=== PATIENT | female | born 1965 | race Two or more races ===

== ENCOUNTER → 2016-11-29 | Outpatient (CLI) | payer BC ==
[~2016-11-29] MED LIST: ADVIL200 M1 PO; ALBUTEROL17 G1 IH; ALBUTEROL17 GM INH; AMITRIPTYLINE H25 MG PO; ATENOLOL25 MG PO; ATORVASTATIN CA20 MG PO; AUGMENTIN PO; AUGMENTIN875 MG DOB; AUGMENTIN875 MG PO; BENADRYL25 M1 PO; BENADRYL25 MG PO; BENZONATATE PO; CLINDAMYCIN HC300 MG PO; COMBIVENT RESPIM4 GM INH; CYANOCOBAL1000 MCG/M INJ; CYMBALTA30 MG PO; DULOXETINE HCL60 M1; DULOXETINE HCL60 MG PO; FLEXERIL PO; FLEXERIL10 MG PO; FLONASE 0.05% N16 G1; FUROSEMIDE40 MG PO; HUMIBID-LA600 MG PO; HYDROCODON-ACE1 EAC5 PO; IBUPROFEN400 MG PO; IBUPROFEN600 MG PO; K-DUR20 ME1 PO; KCL PO; KLOR-CON PO; LASIX PO; LEVAQUIN PO; LEVOTHYROXINE25 MC1 PO; LISINOPRIL-HCTZ1 T15 PO; METFORMIN HCL1000 M1 PO; MOBIC PO; NEXIUM PO; NORCO 10-325 TA1 TAB PO; NORCO1 TAB 10/3 PO; OMEPRAZOLE40 MG PO; OMNICEF300 MG PO; OXYCODONE-ACET1 EACH PO; OXYGEN; PERCOCET 10/3251 TAB PO; PREDNISONE PO; PREVACID15 MG PO; PROAIR HFA8.5 GM IH; PROAIR HFA8.5 GM IN; PROAIR HFA8.5 GM INH; PROTONIX PO; SYMBICORT80 INH; TENORMIN25 MG PO; TESSALON PERLE100 M1 PO; TYLENOL #3 PO; TYLENOL325 M1 PO; VITAL-D RX TABL1 TAB PO; VITAMIN B 12; VITAMIN B12 IM; VITAMIN D-32000 UNI1 PO; VITAMIN D2000 UNIT PO; VITAMIN D32000 UNI1 PO; VITAMIN D33000 UNIT PO; VITAMIN D35000 UNIT PO; VITAMIN D400 UNI2 PO; VITAMIN D50000 UNIT PO; ZESTRIL2.5 M1 PO; ZITHROMAX500 MG PO
--- NOTE | ~2016-11-29 | EKG ---
PATIENT: CATHY LLOYD UNIT #: [id number] Ventricular Rate: 80 BPM Atrial Rate: 80 BPM P-R Interval: 156 ms QRS Duration: 88 ms Q-T Interval: 374 ms QTC Calculation(Bezet): 431 ms P [place]: 71 degrees Calculated R [place]: 49 degrees Calculated T [place]: 61 degrees Diagnosis Line: Normal sinus rhythm Diagnosis Line: Normal ECG Diagnosis Line: When compared with ECG of 15-JAN-2016 21:55, Diagnosis Line: No significant change was found Diagnosis Line: Confirmed by IZABELLA SAN MD ([id number]) on 11/30/2016 Diagnosis Line: 9:59:51 AM INTERPRETING MD: MENA SPENCER
[2016-11-29 10:05] LABS: HEMATOCRIT 39.9 % (35.0-45.0); HEMOGLOBIN 12.5 gm/dL (12.0-16.0); MEAN CELL VOLUME 80.6 FL (83-96); MEAN CORPUSCULAR HEMOGLOBIN 25.2 PG (28-34); MEAN CORPUSCULAR HGB CONC 31.2 g/dL (30-36); MEAN PLATELET VOLUME 7.8 FL (6.5-11.5); RED BLOOD COUNT 4.95 X10e (3.90-5.30); RED CELL DISTRIBUTION WIDTH 17.2 % (11.0-15.5)
[2016-11-29 11:11] LABS: CALCIUM SERUM 8.8 mg/dL (8.4-10.2); CREATININE SERUM 0.5 mg/dL (0.6-1.4); GLOM FILT RATE Estimated 110.5 mL/min (>60); POTASSIUM 4.5 mmol/L (3.5-5.1)
== END | disposition home or self-care (01) ==
LOC: CAMB 08:46
PROVIDERS: Specialist
DX: Z01.818 Encounter for other preprocedural examination (principal); L73.2 Hidradenitis suppurativa
CPT/HCPCS: 36415; 80048; 85027; 93005

== ENCOUNTER → 2016-12-06 | Day surgery (SDC) | payer BC ==
--- NOTE | ~2016-12-06 | OR ---
Unit #: [id number] #: [id number] Patient: CATHY LLOYD [id number] [address] [id number] MR#: [id number] NAME: CATHY LLOYD ROOM: Date of Procedure: 12/06/2016 Admission Date: 12/06/2016 Surgeon: Ap Burdick M.D. : 1965 Attending Physician: Ap Burdick M.D. Primary Care Physician: Charlotte Gardner A.P.R.N. OPERATIVE REPORT POSTOPERATIVE DIAGNOSES Chronic recurrent inguinal and perineal hidradenitis. POSTOPERATIVE DIAGNOSES Chronic recurrent inguinal and perineal hidradenitis. PROCEDURES PERFORMED Wide excision of right inguinal and perineal hidradenitis and placement of a [place] drain. ANESTHESIA General endotracheal anesthesia. ESTIMATED BLOOD LOSS 100 mL. INDICATIONS FOR PROCEDURE A 51-year-old female, who has severe multifocal hidradenitis. She has previously had surgery in both axilla and under the breast. She now has developed chronic draining sinus tracts and recurrent infections in the right inguinal crease extending down into the perineal and buttock region. It has failed to respond to local care and multiple courses of antibiotics. DESCRIPTION OF PROCEDURE The patient was admitted to [facility], positively identified, and transported to the operating room, and after induction of general endotracheal anesthesia, she was placed in lithotomy position and prepped and draped in usual sterile fashion. In the upper inguinal area extending onto the labia majora, there was an area of chronic induration and sinus tracts that I palpated and from the rest of the soft tissue. A wedge excision around this area was made and the area was resected en bloc. Because the soft tissues could not be closed to prevent space accumulation of fluid, a 1/4-inch Sejal drain was placed in the base of the wound. The dermis was reapproximated with 2-0 Vicryl interrupted suture and the skin was closed with 3-0 nylon running suture. Down in the lower inguinal area extending in the perineum and the buttock, there was a much larger area of approximately 12 x 6 cm. It was excised to include all the skin openings and chronic sinus tracts. It too was resected en bloc. I irrigated the soft tissue and obtained hemostasis. The soft tissues were closed with multiple 2-0 Vicryl interrupted sutures. The skin was closed with 3-0 nylon running suture. Anat-Pad and fishnet pants were placed as dressing. Sponges and needle counts were correct x3. Unit #: [id number] #: [id number] Patient: CATHY LLOYD The patient tolerated the procedure well and transported to recovery in stable condition. Findings and postoperative instructions were discussed with her family. Dictated by... Anderson Norris/amanda TD: 12/07/2016 01:30 JOB #: [id number] OPERATIVE REPORT Page 1 of 1 X Ap Burdick MD PROCEDURE OPERATIVE NOTE
== END | disposition home or self-care (01) ==
LOC: CSUR 10:30
DX: L73.2 Hidradenitis suppurativa (principal); L72.0 Epidermal cyst; I10 Essential (primary) hypertension; E11.9 Type 2 diabetes mellitus without complications; E03.9 Hypothyroidism, unspecified; J45.909 Unspecified asthma, uncomplicated; F41.9 Anxiety disorder, unspecified; E66.9 Obesity, unspecified; K21.9 Gastro-esophageal reflux disease without esophagitis; M19.90 Unspecified osteoarthritis, unspecified site; G47.30 Sleep apnea, unspecified; J44.9 Chronic obstructive pulmonary disease, unspecified; F32.9 Major depressive disorder, single episode, unspecified; F17.210 Nicotine dependence, cigarettes, uncomplicated; Z68.41 Body mass index [BMI] 40.0-44.9, adult; Z87.01 Personal history of pneumonia (recurrent); Z88.2 Allergy status to sulfonamides; Z88.8 Allergy status to other drugs, medicaments and biological substances; Z91.040 Latex allergy status; Z91.048 Other nonmedicinal substance allergy status; Z79.1 Long term (current) use of non-steroidal anti-inflammatories (NSAID); Z79.84 Long term (current) use of oral hypoglycemic drugs; Z79.891 Long term (current) use of opiate analgesic; Z79.51 Long term (current) use of inhaled steroids; Z79.899 Other long term (current) drug therapy; Z98.890 Other specified postprocedural states
CPT/HCPCS: 82947; 87070; 87075; 87077; 87205; 88304; J1170; J1885; J2250; J2405; J3010; J3370